=== PATIENT | male | born 1985 ===

== ENCOUNTER 2017-11-22 12:14 | Inpatient (IN) | payer OTHER, SELFPAY ==
[2017-11-22] MEDS ORDERED: Ondansetron HCl/PF 4 MG/2 ML Vial ONE ×2 (12:53→17:05)
[2017-11-22] MEDS ORDERED: Fentanyl 100 MCG/2 ML VIAL ONE ×5 (13:04→20:59)
[2017-11-22 13:18] LABS: #Eosinphils 0.2 thou/uL (0.0-0.7); #Lymphocytes 2.4 thou/uL (1.20-3.40); #Monocytes 0.9 thou/uL (0.11-0.59); #Neutrophils 9.2 thou/uL (1.40-6.50); %Basophils 0.3 % (0.0-1.0); %Eosinophils 1.7 % (0.0-10.0); %Monocytes 6.8 % (0.0-10.0); %Neutrophils 72.1 % (42.0-75.0); Hemoglobin 14.4 g/dL (14.0-18.0); Mean Corpuscular HGB CONC 35.1 g/dL (32.0-36.0); Mean Corpuscular Hemoglobin 33.4 pg (27.0-31.0); Mean Corpuscular Volume 95.2 fl (80.0-94.0); Mean Platelet Volume 6.9 fL (7.4-10.4); Platelet Count 378 thou/uL (130-400); RBC Distribution Width 11.8 % (11.5-14.5); Red Blood Cell (RBC) Count 4.32 mill/uL (4.70-6.10); White Blood Cell (WBC) Count 12.7 thou/uL (4.8-10.8)
[2017-11-22 13:29] LABS: ALT (SGPT) 101 U/L (8-55); AST (SGOT) 109 U/L (5-34); Albumin 4.3 g/dL (3.5-5.0); Alkaline Phosphatase 77 U/L (40-150); Anion Gap 13 mmol/L (10-20); BUN (Urea Nitrogen) 11 mg/dL (8.9-20.6); Bilirubin, Total 0.3 mg/dL (0.2-1.2); Calc. Creatinine Clearance 0 mL/min (70-130); Carbon Dioxide 24 mmol/L (22-29); Chloride 105 mmol/L (98-107); Estimated GFR-MDRD Greater than 90; Glucose 107 mg/dL (70-105); Lipase 17 U/L (8-78); Potassium 3.7 mmol/L (3.5-5.1); Protein, Total 7.3 g/dL (6.0-8.3); Sodium 138 mmol/L (136-145)
[2017-11-22] MEDS ORDERED: Morphine 4 MG/ML VIAL ONE ×2 (14:02→16:21)
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
[2017-11-22] MEDS ORDERED: Adacel (T-DAP) 0.5 ML VIAL ONE (14:18)
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
[2017-11-22] MEDS ORDERED: ISOVUE-370 76%-LOCM 1 ML ONE (14:36)
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
[2017-11-22] MEDS ORDERED: CEFAZOLIN/Water 2 GM/20 ML SYRINGE SLOW IVP SCH (14:45)
[2017-11-22 14:57] LABS: Bilirubin Negative (Negative); Blood, Urine Negative (Negative); Clarity CLEAR (Clear); Glucose, Urine (Dipstick) Negative (Negative); Leukocyte Negative (Negative); Nitrite Negative (Negative); Protein, Urine (Dipstick) 30 mg/dL (Neg-Trace); Urobilinogen 0.2 mg/dL (0.2-1.0)
[2017-11-22 14:59] LABS: Bacteria/HPF None Seen HPF (None Seen); Hyaline Casts/LPF 4-6 HYALINE CAST LPF (0-3 Hyaline); Pathc Cast-AUWi Flag 0.72 (0-2.49); Squamous Epithelial 0-3 HPF (0-3); WBC/HPF 0-3 HPF (0-3)
[2017-11-22 15:00] LABS: Specific Gravity, Urine Greater than 1.060 (1.002-1.036)
[2017-11-22] MEDS ORDERED: Ketorolac Tromethamine 30 MG/ML VIAL ONE (17:05)
[2017-11-22] MEDS ORDERED: Lidocaine 1% PF 5 ML VIAL ONE (17:05)
[2017-11-22] MEDS ORDERED: PROPOFOL 200 MG/20 ML VIAL ONE (17:05)
[2017-11-22] MEDS ORDERED: Succinylcholine Chloride 20 MG/ML 10 ml SYRINGE FS ONE (17:05)
[2017-11-22] MEDS ORDERED: CEFAZOLIN/Water 2 GM/20 ML SYRINGE ONE (17:17)
[2017-11-22] MEDS ORDERED: Promethazine HCl 25 MG/ML VIAL SLOW IVP PRN (20:21)
[2017-11-22] MEDS ORDERED: Promethazine HCl 25 MG/ML VIAL IM PRN (20:21)
[2017-11-22] MEDS ORDERED: Meperidine HCl/PF 25 MG/ML VIAL SLOW IVP PRN (20:21)
[2017-11-22] MEDS ORDERED: Ondansetron HCl/PF 4 MG/2 ML Vial IVP PRN ×2 (20:21→21:23)
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
--- NOTE | 2017-11-22 21:00 | RAD ---
LEFT FEMUR INTRAOPERATIVE FLUOROSCOPY TWO VIEWS: 11/22/17 HISTORY: Femur fracture. FINDINGS/IMPRESSION: Intraopertive fluoroscopy was provided for internal fixation as performed by Dr. Degroot. Multiple spot fluoroscopic images show long medullary tana to transfix the comminuted fracture of the left femo ral shaft, in anatomic alignment. Fluoro time is 131 seconds. POS: [facility]
[2017-11-22] MEDS ORDERED: Dextrose 5% in Water 1,000 ML IV PRN (21:23)
[2017-11-22] MEDS ORDERED: hydrALAZINE 20 MG/ML VIAL SLOW IVP PRN (21:23)
[2017-11-22] MEDS ORDERED: Dextrose 50% Abboject 50 ML SYRINGE SLOW IVP PRN (21:23)
[2017-11-22] MEDS ORDERED: Rib Fracture Protocol IV SCH (21:23)
[2017-11-22] MEDS ORDERED: Morphine 4 MG/ML VIAL SLOW IVP PRN ×2 (21:45)
[2017-11-22] MEDS: Acetaminophen 1,000 MG in Premix Bag 1 BAG IVPB SCH (22:01)
[2017-11-22] MEDS: Sodium Chloride 0.9% 1,000 ML IV SCH (22:21)
[2017-11-22] MEDS: Enoxaparin Sodium 40 MG/0.4 ML SYRINGE SC SCH (22:21)
[2017-11-22 22:33] VITALS: BMI 28.5
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
[2017-11-22] MEDS ORDERED: Acetaminophen 650 MG Suppository PR SCH (23:59)
[2017-11-23] MEDS: Ketorolac Tromethamine 30 MG/ML VIAL IVP SCH ×2 (00:44→05:38)
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
[2017-11-23] MEDS: CEFAZOLIN/Water 2 GM/20 ML SYRINGE SLOW IVP SCH ×2 (02:59→10:44)
[2017-11-23] MEDS: Acetaminophen 1,000 MG in Premix Bag 1 BAG IVPB SCH ×2 (03:46→09:43)
[2017-11-23 04:50] LABS: #Basophils 0.1 thou/uL (0.0-0.2); #Eosinphils 0.1 thou/uL (0.0-0.7); #Monocytes 0.9 thou/uL (0.11-0.59); #Neutrophils 3.2 thou/uL (1.40-6.50); %Basophils 0.9 % (0.0-1.0); %Eosinophils 1.2 % (0.0-10.0); %Lymphocytes 41.5 % (21.0-51.0); %Monocytes 12.1 % (0.0-10.0); %Neutrophils 44.2 % (42.0-75.0); Hemoglobin 10.2 g/dL (14.0-18.0); Mean Corpuscular HGB CONC 34.3 g/dL (32.0-36.0); Mean Corpuscular Hemoglobin 33.6 pg (27.0-31.0); Mean Corpuscular Volume 97.9 fl (80.0-94.0); Mean Platelet Volume 7.3 fL (7.4-10.4); Platelet Count 288 thou/uL (130-400); RBC Distribution Width 11.8 % (11.5-14.5); Red Blood Cell (RBC) Count 3.05 mill/uL (4.70-6.10); White Blood Cell (WBC) Count 7.2 thou/uL (4.8-10.8)
[2017-11-23] MEDS: Sodium Chloride 0.9% 1,000 ML IV SCH (05:39)
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
[2017-11-23] MEDS: Pantoprazole 40 MG VIAL IVP SCH (09:42)
[2017-11-23] MEDS: Bisacodyl 5 MG TAB PO SCH (09:42)
[2017-11-23] MEDS: Polyethylene Glycol 3350 17 GM Packet PO SCH (09:42)
[2017-11-23] MEDS ORDERED: traMADol HCl 50 MG TAB PO SCH (11:00)
--- NOTE | 2017-11-23 11:15 | PRG ---
DATE OF SERVICE: 11/23/2017 SUBJECTIVE: Mr. Delacruz is seen with Joie Trejo. Please see her note for full details. Briefly, the patient presents with left femur fracture as well as chronic left inguinal hernia, stabl e status post open reduction internal fixation. ASSESSMENT AND PLAN: Plans per Ortho. The patient and I discussed, seeing me as an outpatient to priti reno the inguinal hernia repairs, which would be done electively as an outpatient.
[2017-11-23] MEDS: Ibuprofen 600 MG TAB PO SCH ×2 (11:48→19:51)
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
[2017-11-23] MEDS: Acetaminophen 500 MG TAB PO SCH ×2 (15:46→21:29)
[2017-11-23] MEDS: traMADol HCl 50 MG TAB PO PRN (19:50)
[2017-11-23] MEDS: Enoxaparin Sodium 40 MG/0.4 ML SYRINGE SC SCH (21:29)
[2017-11-24] MEDS: Ibuprofen 600 MG TAB PO SCH ×3 (03:34→18:12)
[2017-11-24] MEDS: Acetaminophen 500 MG TAB PO SCH ×4 (03:34→22:58)
[2017-11-24] MEDS ORDERED: Acetaminophen 650 MG Suppository PR SCH (06:00)
[2017-11-24] MEDS: traMADol HCl 50 MG TAB PO PRN ×2 (06:56→17:08)
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
[2017-11-24] MEDS: Pantoprazole 40 MG VIAL IVP SCH (07:56)
[2017-11-24] MEDS: Bisacodyl 5 MG TAB PO SCH (07:56)
[2017-11-24] MEDS: Polyethylene Glycol 3350 17 GM Packet PO SCH (07:56)
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
[2017-11-24] MEDS: Enoxaparin Sodium 40 MG/0.4 ML SYRINGE SC SCH (23:00)
[2017-11-25] MEDS: Ibuprofen 600 MG TAB PO SCH ×3 (03:07→18:16)
[2017-11-25] MEDS: traMADol HCl 50 MG TAB PO PRN ×4 (03:08→22:47)
[2017-11-25] MEDS: Acetaminophen 500 MG TAB PO SCH ×4 (03:08→21:44)
[2017-11-25] MEDS: Polyethylene Glycol 3350 17 GM Packet PO SCH (08:55)
[2017-11-25] MEDS: Bisacodyl 5 MG TAB PO SCH (08:55)
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
[2017-11-25] MEDS: Enoxaparin Sodium 40 MG/0.4 ML SYRINGE SC SCH (21:44)
[2017-11-26] MEDS: Ibuprofen 600 MG TAB PO SCH ×2 (03:30→10:01)
[2017-11-26] MEDS: Acetaminophen 500 MG TAB PO SCH ×3 (03:30→16:41)
[2017-11-26] MEDS: traMADol HCl 50 MG TAB PO PRN ×2 (05:36→14:53)
[2017-11-26 08:02] VITALS: TEMP 97.8
[2017-11-26] MEDS: Polyethylene Glycol 3350 17 GM Packet PO SCH (08:18)
[2017-11-26] MEDS: Bisacodyl 5 MG TAB PO SCH (08:18)
[2017-11-26] MEDS ORDERED: Bisacodyl 10 MG SUPP PR SCH (08:45)
[2017-11-26] MEDS ORDERED: Docusate 100 MG CAP PO SCH (09:00)
[2017-11-26] MEDS ORDERED: Senokot 8.6 MG TAB PO SCH (09:00)
[2017-11-26 12:02] VITALS: BP 120/80
[2017-11-26] MEDS ORDERED: Aspirin 81 mg Enteric Coated Tablet PO SCH (21:00)
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
== END 2017-11-26 18:56 | disposition home or self-care (01) | DRG 956 ==
LOC: ERS 12:14 → SDC 14:38 → SURG A 20:32
PROVIDERS: ADMIT Surgery; ATTEND Surgery
PROC: 0QS936Z Reposition Left Femoral Shaft with Intramedullary Internal Fixation Device, Percutaneous Approach (ICD-10-PCS; principal; 2017-11-22)
PROC: 0XQF0ZZ Repair Left Lower Arm, Open Approach (ICD-10-PCS; 2017-11-22)
PROC: 0XQF0ZZ Repair Left Lower Arm, Open Approach (ICD-10-PCS; 2017-11-22)
DX: S72.352A Displaced comminuted fracture of shaft of left femur, initial encounter for closed fracture (principal); S27.329A Contusion of lung, unspecified, initial encounter; S22.41XA Multiple fractures of ribs, right side, initial encounter for closed fracture; V49.40XA Driver injured in collision with unspecified motor vehicles in traffic accident, initial encounter; F17.210 Nicotine dependence, cigarettes, uncomplicated; S41.112A Laceration without foreign body of left upper arm, initial encounter; K40.90 Unilateral inguinal hernia, without obstruction or gangrene, not specified as recurrent; Z87.820 Personal history of traumatic brain injury
CPT/HCPCS: 36415; 51702; 70450; 71045; 71260; 72125; 74177; 76001; 80053; 81003; 81015; 83690; 85025; 90471; 90715; 93005; 94640; 96361; 96374; 96375; 96376; C1713; C1769; C9113; G0390; G8978-GP-CK; G8979-GP-CI; G8987-GO-CL; G8988-GO-CK; J0131; J1650; J1885; J2001; J2270; J2405; J2704; J3010; J7620